=== PATIENT | female | born 1950 | race Caucasian/White ===

== ENCOUNTER 2022-04-08 14:05 | Emergency (ER) | payer OTHER | END 2022-04-08 17:06 | disposition home or self-care (01) | LOC: ERS 14:05 | DX: L40.9 Psoriasis, unspecified (principal); I10 Essential (primary) hypertension; E03.9 Hypothyroidism, unspecified | CPT/HCPCS: 99282 ==

== ENCOUNTER 2022-12-09 10:31 | Outpatient (CLI) | payer MEDICARE, OTHER ==
[2022-12-09] MEDS ORDERED: Iopamidol-370 76% 500 ML MDV (1 ML CHARGE) ONE (10:36)
== END 2022-12-09 10:32 | disposition home or self-care (01) ==
LOC: BICCT 10:31
PROVIDERS: ATTEND Internal Medicine
DX: R10.32 Left lower quadrant pain (principal); M62.50 Muscle wasting and atrophy, not elsewhere classified, unspecified site; K80.20 Calculus of gallbladder without cholecystitis without obstruction
CPT/HCPCS: 74177; 82565; Q9967